=== PATIENT | male | born 1985 | race American Indian/Alaskan Native ===

== ENCOUNTER 2017-01-06 07:39 | Emergency (ER) | payer SELFPAY ==
[2017-01-06 07:44] VITALS: BMI 29.7
[2017-01-06 07:46] VITALS: BP 149/97; PULSE 80; RESP 18; TEMP 97.8; O2SAT 98
--- NOTE | 2017-01-06 07:54 | C.PDOC ---
History Of Present Illness 31-year-old male, presents to the emergency department with complaints of penile discharge that he noticed this morning. Patient states he has been having unprotected oral sex, and is unsure of whether he has an STD. Patient does not complain of any pain at this time. No other complaints. Time Seen by Provider: 01/06/17 07:51 Chief Complaint (Nursing): Male Genitourinary History Per: Patient History/Exam Limitations: no limitations Onset/Duration Of Symptoms: Days Past Medical History Reviewed: Historical Data, Nursing Documentation, Vital Signs Vital Signs: Last Vital Signs Temp 97.8 F 01/06/17 07:43 Pulse 80 01/06/17 07:43 Resp 18 01/06/17 07:43 BP 149/97 H 01/06/17 07:43 Pulse Ox 98 01/06/17 08:10 - Medical History PMH: HTN Family History: States: Unknown Family Hx - Social History Hx Tobacco Use: No Hx Alcohol Use: No Hx Substance Use: No - Immunization History Hx Tetanus Toxoid Vaccination: No Hx Influenza Vaccination: No Hx Pneumococcal Vaccination: No Review Of Systems Except As Marked, All Systems Reviewed And Found Negative. Constitutional: Negative for: Fever, Chills Gastrointestinal: Negative for: Nausea, Vomiting Genitourinary: Positive for: Penile Discharge. Negative for: Dysuria, Frequency , Incontinence, Hematuria, Scrotal Pain, Rash, Penile Pain Skin: Negative for: Rash Physical Exam - Physical Exam Appears: Non-toxic, No Acute Distress Skin: Warm, Dry, No Rash Eye(s): bilateral: Normal Inspection, PERRL Nose: Normal Oral Mucosa: Moist Lips: Normal Appearing Neck: Normal ROM Respiratory: No Accessory Muscle Use Gastrointestinal/Abdominal: Soft, No Tenderness Male Genital: No Testicular Tenderness, No Testicular Swelling, No Inguinal Tenderness, No Inguinal Swelling, No Scrotal Swelling, Circumcised Extremity: Normal ROM Neurological/Psych: Oriented x3, Normal Speech ED Course And Treatment O2 Sat by Pulse Oximetry: 98 Disposition - Disposition Referrals: [facility] [Outside] [facility] [Outside] Disposition: HOME/ ROUTINE Disposition Time: 08:28 Condition: STABLE Additional Instructions: please return to er with worsening symptoms or concerns. Instructions: Safe Sex (ED), Sexually Transmitted Diseases (ED) - Clinical Impression Clinical Impression: Penile discharge - Scribe Statement The provider has reviewed the documentation as recorded by the Scribe Zunaira Deysi All medical record entries made by the Jane were at my direction and personally dictated by me. I have reviewed the chart and agree that the record accurately reflects my personal performance of the history, physical exam, medical decision making, and the department course for this patient. I have also personally directed, reviewed, and agree with the discharge instructions and disposition.
[2017-01-06] MEDS ORDERED: cefTRIAXone (Rocephin) 250 mg Inj IM STA (08:03)
[2017-01-06 08:48] LABS: RBC URINE 2 /hpf (0-3); URINE BILIRUBIN NEGATIVE (NEGATIVE); URINE BLOOD NEGATIVE (NEGATIVE); URINE COLOR Yellow (YELLOW); URINE GLUCOSE (UA) NORMAL (Normal); URINE KETONE NEGATIVE (NEGATIVE); URINE LEUKOCYTE ESTERASE NEG Leu/uL (Negative); URINE PROTEIN NEGATIVE (NEGATIVE); URINE UROBILINOGEN NORMAL mg/dL (0.2-1.0); WBC URINE 5 /hpf (0-5)
[2017-01-06] MEDS ORDERED: cefTRIAXone 250 MG in Lidocaine Hydrochloride 0.9 ML IM ONE (09:00)
== END 2017-01-06 09:06 | disposition home or self-care (01) ==
LOC: C.ER 07:39
DX: R36.9 Urethral discharge, unspecified (principal)
CPT/HCPCS: 81001; 96372; 99284; J0696

== ENCOUNTER 2017-01-20 16:02 | Emergency (ER) | payer SELFPAY ==
[2017-01-20 16:03] VITALS: BMI 29.7
[2017-01-20 16:09] VITALS: BP 152/113; PULSE 84; TEMP 98.2; O2SAT 100
--- NOTE | 2017-01-20 16:46 | C.PDOC ---
History Of Present Illness Patient is a 31 y/o male, with no significant PMHx, presents to the ED for evaluation of diarrhea for the last 10 days. Patient reports having abdominal "rumbling" which is resolved after having loose BMs. Patient reports being seen here approximately 10 days ago for STD complaints, and was administered antibiotics. Patient states that his symptoms began after taking the antibiotics. Otherwise, pt denies any fever, abdominal pain, bleeding, recent travel, recent camping/hiking, or any other associated symptoms at this time. Time Seen by Provider: 01/20/17 16:10 Chief Complaint (Nursing): Abdominal Pain History Per: Patient History/Exam Limitations: no limitations Onset/Duration Of Symptoms: Days (10) Current Symptoms Are (Timing): Still Present Severity: None Pain Scale Rating Of: 0 Reports Recently: Seen In ED Recent travel outside of the [place]: No Additional History Per: Patient Past Medical History Reviewed: Historical Data, Nursing Documentation, Vital Signs Vital Signs: Last Vital Signs Temp 98.2 F 01/20/17 16:08 Pulse 84 01/20/17 16:08 Resp 18 01/20/17 17:14 BP 152/113 H 01/20/17 16:08 Pulse Ox 100 01/20/17 18:12 - Medical History PMH: HTN Family History: States: No Known Family Hx - Social History Hx Tobacco Use: No Hx Alcohol Use: No Hx Substance Use: No - Immunization History Hx Tetanus Toxoid Vaccination: No Hx Influenza Vaccination: No Hx Pneumococcal Vaccination: No Review Of Systems Except As Marked, All Systems Reviewed And Found Negative. Constitutional: Negative for: Fever, Chills Gastrointestinal: Positive for: Diarrhea. Negative for: Nausea, Vomiting, Abdominal Pain, Hematochezia Genitourinary: Negative for: Dysuria, Hematuria Physical Exam - Physical Exam Additional Physical Exam Comments: Constitutional: No acute distress. Head: Normocephalic. Atraumatic. Eyes: PERRL. ENT: Moist mucous membranes. Neck: Supple. Cardiovascular: Regular rate. Radial pulse 2+ bilaterally. Chest: No tenderness. Respiratory: Clear to auscultation bilaterally. GI: Soft. Nontender. Nondistended. Back: No CVA tenderness. Musculoskeletal: No tenderness or swelling of extremities. Skin: No rash. Neurologic: Alert, no focal deficit. ED Course And Treatment O2 Sat by Pulse Oximetry: 100 Medical Decision Making Medical Decision Making: Differential diagnosis: side effects of meds vs. viral enteritis Instructed patient to continue PO fluid intake, follow up with PMD for HTN management, and to return to ED for any fever, bleeding, or abdominal pain. Disposition - Disposition Disposition: HOME/ ROUTINE Disposition Time: 16:42 Condition: STABLE Prescriptions: Loperamide [Imodium] 2 mg PO ONCE #18 cap Instructions: Acute Diarrhea (ED) - Clinical Impression Clinical Impression: Diarrhea - Scribe Statement The provider has reviewed the documentation as recorded by the Jane Terry Provider Attestation: All medical record entries made by the Jane were at my direction and personally dictated by me. I have reviewed the chart and agree that the record accurately reflects my personal performance of the history, physical exam, medical decision making, and the department course for this patient. I have also personally directed, reviewed, and agree with the discharge instructions and disposition.
[2017-01-20 17:15] VITALS: RESP 18
== END 2017-01-20 17:15 | disposition home or self-care (01) ==
LOC: C.ER 16:02
DX: R19.7 Diarrhea, unspecified (principal)